=== PATIENT | female | born 1945 | race Caucasian/White ===

== ENCOUNTER → 2024-09-09 11:31 | Emergency (ER) | payer OTHER, SELFPAY ==
[2024-09-09 11:39] VITALS: BP 165/104
[2024-09-09 12:20] LABS: % Basophils 0.7 % (0-2); % Eosinophils 0.7 % (0-6); % Immature Granulocytes 0.3 % (0-0.5); % Lymphocytes 24.7 % (20.5-51.1); % Monocytes 7.2 % (1.7-9.3); % Neutrophils 66.4 % (42.2-75.2); Absolute Lymphocytes 1.5 10^3/uL (1.2-3.4); Absolute Monocytes 0.4 10^3/uL (0.1-0.6); Hematocrit 43.3 % (37.0-47.0); Hemoglobin 14.4 g/dL (12.0-16.0); Mean Corp Hgb Conc. 33.3 g/dL (33.0-37.0); Mean Corpuscular Hgb 31.3 pg (27.0-31.0); Mean Corpuscular Volume 94.1 fL (81.0-99.0); Nucleated Red Blood Cells % 0 %; Platelet Count 296 10^3/uL (130-400); Red Cell Dist. Width 12.9 % (11.5-14.5)
[2024-09-09 12:41] LABS: ALT (SGPT) 28 U/L (0-35); AST (SGOT) 27 U/L (14-36); Albumin 4.5 g/dl (3.5-5.0); Alkaline Phosphatase 106 U/L (38-126); Blood Urea Nitrogen 11 mg/dl (7-17); Calcium 10.5 mg/dl (8.4-10.2); Carbon Dioxide 25 mmol/L (22-30); Chloride 104 mmol/L (98-107); Glucose 220 mg/dl (70-99); Potassium 4.1 mmol/L (3.5-5.1); Sodium 139 mmol/L (135-145); Total Bilirubin 0.7 mg/dl (0.2-1.3); eGFR > 60.00
[2024-09-09 12:46] LABS: Lipase 118 U/L (23-300)
[2024-09-09 14:16] VITALS: BP 178/94
[2024-09-09 14:45] VITALS: BP 154/82
[2024-09-09 16:29] VITALS: BP 148/93; PULSE 82; O2SAT 96
--- NOTE | 2024-09-09 17:13 | ED.GENMED ---
History of Present Illness
General
Chief Complaint: Dizziness
Source: patient and spouse
Exam Limitations: none
Time Seen by Provider: 09/09/24 14:41
Nursing documentation reviewed up to this point in time: agreed with
History of Present Illness
History of Present Illness:
79-year-old female presenting the emergency department today with concerns of room spinning dizziness made worse with positioning over the past few days. Associated nausea. Had a stomach bug 2 weeks ago. Denies any chest pain shortness of breath
or palpitations.
Review of Systems
Review of Systems
Allergies reviewed?: Yes
All Other Systems: ROS reviewed and negative except as documented in HPI and ROS
Phy Exam
Physical Exam
Physical Exam:
GENERAL: Alert , in no apparent distress
EYE: pupils equal and reactive
NECK: Supple, no significant adenopathy.
ENT: o/p clr, mmm.
CARDIAC: Regular rate and rhythm .
LUNGS: Clear breath sounds bilaterally, no acute respiratory distress, no wheezes/rales/rhonchi
ABDOMEN: Soft, without focal tenderness, no r/g, no cvat
NEUROLOGICAL: Alert and oriented, no focal neuro deficits out of 5 upper and lower extremity strength normal sensation with palpating bilaterally.
SKIN: Warm and dry, skin intact.
MUSCULOSKELETAL: No edema, well perfused.
PSYCH: Normal and appropriate interaction.
Course
Orders/Labs/Results
Orders:
Orders
09/09/24 11:44
Electrocardiogram (*1) Urgent
Reason for Study: Vertigo / Dizzy
EKG- Treatment ONCE
09/09/24 11:54
Complete Blood Count/With Diff Urgent
Comprehensive Metabolic Panel Urgent
Lipase Urgent
09/09/24 15:04
CT Head W/o Iv Contrast Urgent
Comment:
Reason For Exam: dizziness, off balance
Pt Eval And Treat Urgent
Treatment: vestibular
Activity Level: Ambulate
Abnormal Lab Results
09/09/24
11:54
MCH 31.3 H pg
(27.0-31.0)
Glucose 220 H mg/dl
(70-99)
Calcium 10.5 H mg/dl
(8.4-10.2)
09/09/24 11:54
09/09/24 11:54
Vital Signs
Initial and Last Documented VS:
Initial Vital Signs
Temp Pulse Resp BP Pulse Ox
98.4 F 116 16 165/104 98
09/09/24 11:39 09/09/24 11:39 09/09/24 11:39 09/09/24 11:39 09/09/24 11:39
Last Documented Vital Signs
Temp Pulse Resp BP Pulse Ox
98.4 F 81 18 154/82 97
09/09/24 11:39 09/09/24 14:45 09/09/24 14:45 09/09/24 14:45 09/09/24 14:22
MDM/Problems Addressed
MDM/Problems Addressed:
79-year-old female presenting to the emergency department today with concerns of room spinning dizziness made worse with positioning. Asymptomatic when sitting still. Seems to be consistent with likely peripheral vertigo. Initially tachycardic
but improved without specific treatment. Labs unremarkable. Offered to get a CT scan but claims that she would like to be discharged at this time as she is asymptomatic. She was seen by vestibular therapy, she was given information for follow-up.
Return precautions given.
*Critical Care Note
Total Time (30-74mins, 75-104mins- exclusive of procedures): Not Applicable
ED Attending Note
-
Portions of this chart may have been created with voice recognition software.� Occasional wrong word or��sound alike� substitutions may have occurred due to the inherent limitations of voice recognition software.
Discharge Plan
Departure
Patient Disposition: Home (Routine Discharge)
Date of Disposition: 09/09/24
Time of Disposition: 17:13
Patient with high blood pressure during this ER visit?: No
Condition: Good
Covid-19: Not Applicable
Discharge Problem:
Vertigo
Instructions: Vertigo (a Type of Dizziness) (DC)
Referrals:
Bijal Alaniz MD [Family Provider] -
Chuckie Connell MD [Active] - Follow up in 5-7 days
Activity Restrictions/Additional Instructions:
You came to the emergency department today with concerns of vertigo. Please follow closely with the ENT and vestibular rehab. Return for any worsening, new or concerning symptoms.
Interventions
Interventions:
*Risk Screen - Suicide Last Done: 09/09/24 14:22
*General Assessment Last Done: 09/09/24 14:22
*Neglect/Abuse Screening Last Done: 09/09/24 14:22
*ED- Fall Risk Assessment Last Done: 09/09/24 14:22
*ED COVID-19 Vaccine History Last Done: 09/09/24 14:22
ED- Neurological Assessment Last Done: 09/09/24 14:23
ED- Cardiac Assessment Last Done: 09/09/24 14:23
ED Swallowing Screen Last Done: 09/09/24 14:23
Discharge Date and Time
Print Language: EQUATORIAL [place]INE[place]
== END | disposition home or self-care (01) ==
LOC: EMR 11:31
PROVIDERS: Emergency Medicine; EMERGENCY PHYSICIAN Emergency Medicine; FAMILY PHYSICIAN Internal Medicine Geriatric Medicine
DX: R42 Dizziness and giddiness (principal); R11.0 Nausea
CPT/HCPCS: 99283; 80053; 83690; 85025; 93005